=== PATIENT | female | born 1995 | race Caucasian/White ===

== ENCOUNTER 2018-03-11 12:37 | Emergency (ER) | payer OTHER ==
[~2018-03-11] VITALS: Ht 162.6 cm; Wt 47.2 kg
--- OUTSIDE RECORDS SUMMARY | ~2018-03-11 | XMS | Clinical Summary ---
Demographics + + + | Address | [address] | | | [place] [address] | + + + | Home Phone | | + + + | Preferred Language | Unknown | + + + | Marital Status | Single | + + + | Taoism Affiliation | Unknown | + + + | Race | Unknown | + + + | Ethnic Group | Unknown | + + + Author + + + | Author | [employer] | + + + | Organization | [facility] | + + + | Address | Unknown | + + + | Phone | Unavailable | + + + Support + + +---------+ + | Name | Relationship | Address | Phone | + + +---------+ + | Message,Detailed | ECON | Unknown | | + + +---------+ + | Monet Buenrostro | ECON | Unknown | | + + +---------+ + | Newton Yousif | ECON | Unknown | | + + +---------+ + Care Team Providers + +------+ + | Care Metals Analyst Name | Role | Phone | + +------+ + | Booker Verde DO | PP | | + +------+ + Allergies No Known Allergies Current Medications + + +-------+---------+------+------+-------+ | Prescription | Sig. | Disp. | Refills | Star | End | Statu | | | | | | t | Date | s | | | | | | Date | | | + + +-------+---------+------+------+-------+ | | Take by mouth. | | | | | Activ | | Desogestrel-Ethinyl | | | | | | e | | Estradiol (AZURETTE | | | | | | | | PO) | | | | | | | + + +-------+---------+------+------+-------+ Active Problems No known active problems Family History + +------+--------+ + | Relation | Name | Status | Comments | + +------+--------+ + | Brother | | Alive | | + +------+--------+ + | Father | | Alive | | + +------+--------+ + | Mother | | Alive | | + +------+--------+ + | Sister | | Alive | | + +------+--------+ + Social History + +-------+ +--------+------+ | Tobacco Use | Types | Packs/Day | Years | Date | | | | | Used | | + +-------+ +--------+------+ | Never Smoker | | | | | + +-------+ +--------+------+ + +---+---+---+ | Smokeless Tobacco: | | | | | Never Used | | | | + +---+---+---+ + + +---------+ + | Alcohol Use | Drinks/We | oz/Week | Comments | | | ek | | | + + +---------+ + | No | | | | + + +---------+ + + + + | Sex Assigned at | Date Recorded | | | | + + + | Not on file | | + + + Last Filed Vital Signs + + + + | Vital Sign | Reading | Time Taken | + + + + | Blood Pressure | 141/102 | 10/13/2015 7:48 AM PST | + + + + | Pulse | 80 | 10/13/2015 7:48 AM PST | + + + + | Temperature | 36.9 C (98.4 F) | 10/13/2015 7:48 AM PST | + + + + | Respiratory Rate | - | - | + + + + | Oxygen Saturation | - | - | + + + + | Inhaled Oxygen | - | - | | Concentration | | | + + + + | Weight | 45.4 kg (100 lb) | 10/13/2015 7:48 AM PST | + + + + | Height | 163.8 cm (5' 4.5") | 10/13/2015 7:48 AM PST | + + + + | Body Mass Index | 16.9 | 10/13/2015 7:48 AM PST | + + + + Plan of Treatment + + + + + | Health Maintenance | Due Date | Last Done | Comments | + + + + + | Vaccine: HPV (1 of 3 | | | | | - Female 3 Dose | 8 | | | | Series) | | | | + + + + + | Vaccine: | | | | | Dtap/Tdap/Td (1 - | 6 | | | | Tdap) | | | | + + + + + | Vaccine: Influenza | | | | | (Season Ended) | 8 | | | + + + + + Results Not on filefrom Last 3 Months Insurance + +--------+ +------+-------+---------+ | Payer | Benefi | Subscriber | Type | Phone | Address | | | t Plan | ID | | | | | | / | | | | | | | Group | | | | | + +--------+ +------+-------+---------+ | [employer] | [employer] | xxxxxxxxxxx | | | | | | WORK | | | | | + +--------+ +------+-------+---------+ + +--------+ +--------+ + + | Guarantor Name | Accoun | Relation to | Date | Phone | Billing Address | | | t Type | Patient | of | | | | | | | | | | + +--------+ +--------+ + + | NANCY CATHERINE | Person | Self [birth year] Home: | [address] [employer] [address] | | | al/Fam | | 1994 | [phone] | [place] [address] | | | tom | | | [birth year] | | + +--------+ +--------+ + +
--- OUTSIDE RECORDS SUMMARY | ~2018-03-11 | XMS | Clinical Summary ---
Demographics + + + | Address | [address] | | | [place] [address] | + + + | Home Phone | | + + + | Preferred Language | Unknown | + + + | Marital Status | Single | + + + | Mu-Ism Affiliation | Unknown | + + + | Race | Unknown | + + + | Ethnic Group | Unknown | + + + Author + + + | Author | [employer] | + + + | Organization [...] Team Providers + +------+ + | Care Hand Funnel Coater Name | Role | Phone | + [...] [birth year] | Home: | [address] [employer] [employer] | | | al/Fam | | 1994 | [phone] | [place] [address] | | | tom | | | [birth year][address] | | + +--------+ +--------+ + +
[2018-03-11] MEDS ORDERED: PROZAC10 MG PO (13:06)
[2018-03-11] MEDS ORDERED: XANAX0.5 MG PO (14:12)
--- NOTE | 2018-03-12 06:37 | EKG ---
[facility] [address] [place], [place] [address] Signed Normal sinus rhythm Rightward axis Nonspecific ST abnormality Abnormal ECG No previous ECGs available Confirmed by MOLLY CARDONA MD ([id number]) on 03/12/2018 6:37:24 AM Electronically Signed By: MOLLY CARDONA MD 03/12/18 0637 PATIENT NAME: ALANA CATHERINE Electrocardiogram DATE OF : [birth year] PHYSICIAN: MOLLY CARDONA MD REPORT #: [id number] REPORT IS CONFIDENTIAL AND NOT TO BE RELEASED WITHOUT AUTHORIZATION
== END 2018-03-11 14:25 | disposition home or self-care (01) ==
LOC: ED 12:37
DX: F41.9 Anxiety disorder, unspecified (principal); Z79.899 Other long term (current) drug therapy
CPT/HCPCS: 80053; 81001; 84703; 85025; 87088; 93005; 93010; 99283